=== PATIENT | male | born 1955 | race African-American/Black ===

== ENCOUNTER 2016-10-08 08:47 | Emergency (ER) | payer OTHER ==
[~2016-10-08] VITALS: Ht 170.2 cm; Wt 71.0 kg
[~2016-10-08 08:47] MED LIST: AMLO10 PO; CLON0.1T PO; ELVI1TAB3 PO; FLUT50SP EACH NARE; LISI20TA3 PO; OMEP40CA2 PO; flonase
[2016-10-08 08:48] VITALS: BP 140/80; PULSE 84; RESP 20; TEMP 97.9; O2SAT 100
--- NOTE | 2016-10-08 09:18 | PD ---
HPI Chief Complaint: General Weakness Time Seen by Provider: 09:18 Travel History International Travel<30 days: No Contact w/Intl Traveler<30days: No Traveled to known affect area: No History of Present Illness HPI Our patient is a 61 y.o. male with a history of HIV, HTN, and GERD presenting with a 1 month history of cough, congestion and myalgias. He has associated nausea, abdominal discomfort, fever, dysuria and burning when he urinates. He also had vomiting episode x1 this am. Emesis was small volume, yellow in color, and without visible blood. He denies chest pain, dyspnea and edema. His symptoms have been occurring off and on during this time frame, and he came in today with no increase in the severity of his symptoms. He stated he was tired of feeling not like his usual self and came to the ER because he doesn 't have a PCP. He has taken Tylenol occasionally for the pain to no relief. He does not note any exacerbating or alleviating factors. He denies having pain aside from myalgias. Patient says he has had similar symptoms before but is unsure of when he felt like this last. He cannot recall having any sick contacts and denies recent travel. He smokes marijuana daily, but denies smoking , alcohol consumption and being sexually active. He was treated for a UTI in August 2015 treated successfully with antibiotics. He is a former IVDA, however he has not used for over 6 years. FMHx is significant for HTN, AL and DM in his mother, AL in his sister, and prostate cancer dx at age 60 in his father. He has no significant surgical history, no allergies. He is being treated for HIV infection at the [facility]. His last CD4 count was 1121 as of 08/23. [facility] Past Medical History Narrative Medical HIV +, HTN, GERD Depression: Yes Heart Rhythm Problems: No Cardiac Catheterization: No Cardiomyopathy: Yes (AND MURMUR) Cardiovascular Problems: Yes (HTN) High Cholesterol: Yes Congestive Heart Failure: No Diabetes: No Diminished Hearing: No GERD: Yes Hepatitis: Yes (c) Hypertension: Yes Reproductive: No Immunizations Current: No Myocardial Infarction: No Past Surgical History Coronary Artery Bypass Graft: No Social History Alcohol Use: No Tobacco Use: Yes (QUIT ) Substance Use: Yes (QUIT) Allergies-Medications (Allergen,Severity, Reaction): Coded Allergies: No Known Allergies (Unverified , 10/08/16) Comments No known drug allergies Reported Meds & Prescriptions Reported Meds & Active Scripts Active Norvasc (Amlodipine Besylate) 10 Mg Tab 10 Mg PO DAILY Lisinopril-Hctz 20-25 Mg Tab 1 Tab PO DAILY Omeprazole 40 Mg Cap 40 Mg PO DAILY Reported Klor-Con 10 (Potassium Chloride) 10 Meq Tab 10 Meq PO DAILY Vitamin D2 (Ergocalciferol) 2,000 Unit Tab 50,000 Units PO WEEKLY Genvoya (Kkazigmutmds-Ghjscrcpxo-Gjnulrqgljmy-Tenofvir) 761-726-325-10 Mg Tab 1 Tab PO DAILY Clonidine (Clonidine HCl) 0.1 Mg Tab 0.1 Mg PO BID Narrative Medication List of his home meds reviewed from the nursing notes Review of Systems Except as stated in HPI: all other systems reviewed are Neg General / Constitutional: Positive: Fever, Chills, Other (diaphoresis, chills) HENT: Positive: Congestion Respiratory: Positive: Cough Gastrointestinal: Positive: Abdominal Pain Genitourinary: Positive: Urgency, Frequency, Dysuria Musculoskeletal: Positive: Myalgias, Weakness Physical Exam Narrative GENERAL: Alert and cooperative, in no acute distress. Talks softly. SKIN: Focused skin assessment warm/dry. HEAD: Atraumatic. Normocephalic. EYES: Pupils equal and round. No scleral icterus. Mildly injected bilaterally. ENT: No nasal bleeding or discharge. Mucous membranes dry. NECK: Trachea midline. No JVD. CARDIOVASCULAR: Regular rate and rhythm. 2/6 systolic murmur auscultated at the right upper sternal border. RESPIRATORY: No accessory muscle use. Clear to auscultation. Breath sounds equal bilaterally. No egophony or dullness to percussion. GASTROINTESTINAL: Abdomen soft, non-tender, nondistended. Hepatic and splenic margins not palpable. MUSCULOSKELETAL: No obvious deformities. No clubbing. No cyanosis. No edema. NEUROLOGICAL: Awake and alert. No obvious cranial nerve deficits. Motor grossly within normal limits. Normal speech. PSYCHIATRIC: Appropriate mood and affect; insight and judgment normal. Data Data Last Documented VS Vital Signs Date Time Temp Pulse Resp B/P Pulse Ox O2 Delivery O2 Flow Rate FiO2 10/08/16 10:46 74 16 131/70 98 Room Air 10/08/16 08:48 97.9 Orders Complete Blood Count With Diff (10/08/16 10:00) Comprehensive Metabolic Panel (10/08/16 10:00) Urinalysis - C+S If Indicated (10/08/16 10:00) Chest, Single Ap (10/08/16 ) Labs Laboratory Tests Test 10/08/16 10/08/16 10/08/16 10:10 10:44 10:47 White Blood Count 5.7 TH/MM3 Red Blood Count 4.34 MIL/MM3 Hemoglobin 13.2 GM/DL Hematocrit 37.7 % Mean Corpuscular Volume 86.9 FL Mean Corpuscular Hemoglobin 30.4 PG Mean Corpuscular Hemoglobin 34.9 % Concent Red Cell Distribution Width 13.9 % Platelet Count 286 TH/MM3 Mean Platelet Volume 7.5 FL Neutrophils (%) (Auto) 38.6 % Lymphocytes (%) (Auto) 43.0 % Monocytes (%) (Auto) 10.1 % Eosinophils (%) (Auto) 7.4 % Basophils (%) (Auto) 0.9 % Neutrophils # (Auto) 2.2 TH/MM3 Lymphocytes # (Auto) 2.5 TH/MM3 Monocytes # (Auto) 0.6 TH/MM3 Eosinophils # (Auto) 0.4 TH/MM3 Basophils # (Auto) 0.1 TH/MM3 CBC Comment DIFF FINAL Differential Comment Sodium Level 138 MEQ/L Potassium Level 4.5 MEQ/L Chloride Level 103 MEQ/L Carbon Dioxide Level 27.4 MEQ/L Anion Gap 8 MEQ/L Blood Urea Nitrogen 12 MG/DL Creatinine 1.17 MG/DL Estimat Glomerular Filtration 77 ML/MIN Rate Random Glucose 84 MG/DL Calcium Level 8.4 MG/DL Total Bilirubin 0.5 MG/DL Aspartate Amino Transf 36 U/L (AST/SGOT) Alanine Aminotransferase 38 U/L (ALT/SGPT) Alkaline Phosphatase 95 U/L Total Protein 8.0 GM/DL Albumin 3.3 GM/DL Urine Color YELLOW Urine Turbidity CLEAR Urine pH 6.5 Urine Specific [place] 1.021 Urine Protein TRACE mg/dL Urine Glucose (UA) NEG mg/dL Urine Ketones NEG mg/dL Urine Occult Blood NEG Urine Nitrite NEG Urine Bilirubin NEG Urine Urobilinogen LESS THAN 2.0 MG/DL Urine Leukocyte Esterase NEG Urine RBC 4 /hpf Urine WBC 1 /hpf Urine Mucus MOD /lpf Microscopic Urinalysis Comment CULT NOT INDICATED MDM Medical Decision Making Medical Screen Exam Complete: Yes Emergency Medical Condition: Yes Medical Record Reviewed: Yes Differential Diagnosis URI, pneumonia, AIDS related illness, UTI Narrative Course Patient was examined and reassured that his symptoms were likely due to viral illness. Given his history of HIV infection,patient agreed for CBC, CMP, U/A and CXR to rule out potential AIDS related illness. 11:35 AM all the test results of back and within normal limit. Procedures EKG Prior to Arrival: No Diagnosis Primary Impression: Upper respiratory infection Qualified Code: J06.9 - Upper respiratory tract infection, unspecified type Referrals: Primary Care Physician Additional Instructions: Return to the ER if the condition worsens or any other new concerns. He could take Tylenol/Motrin/ibuprofen/Advil [id number]. Fever or chills. Follow- up with your primary care. Med/Other Pt SpecificInfo: No Change to Meds Disposition: 01 DISCHARGE HOME Condition: Stable Regina Wray MD Oct 08, 2016 09:18
[2016-10-08] MEDS ORDERED: POTA-243 PO (09:30)
[2016-10-08] MEDS ORDERED: ERGO2000 PO (09:30)
[2016-10-08 10:18] LABS: AUTOMATED NEUTROPHIL # 2.2 TH/MM3 (1.8-7.7); BASOPHIL # 0.1 TH/MM3 (0-0.2); BASOPHIL % 0.9 % (0.0-2.0); EOSINOPHIL # 0.4 TH/MM3 (0-0.4); EOSINOPHIL % 7.4 % (0.0-4.0); HEMATOCRIT 37.7 % (39.0-51.0); HEMO FLAGS DIFF FINAL; LYMPHOCYTE # 2.5 TH/MM3 (1.0-4.8); MEAN CELL VOLUME 86.9 FL (80.0-100.0); MEAN CORPUSCULAR HEMOGLOBIN 30.4 PG (27.0-34.0); MEAN CORPUSCULAR HGB CONC 34.9 % (32.0-36.0); MONO % 10.1 % (0.0-8.0); NEUT % 38.6 % (16.0-70.0); PLATELET COUNT 286 TH/MM3 (150-450); RED BLOOD COUNT 4.34 MIL/MM3 (4.50-5.90); RED CELL DISTRIBUTION WIDTH 13.9 % (11.6-17.2); WHITE BLOOD COUNT 5.7 TH/MM3 (4.0-11.0)
--- NOTE | 2016-10-08 10:30 | RADRPT ---
EXAM DATE/TIME: 10/08/2016 10:06 [facility] COMPARISON: No previous studies available for comparison. INDICATIONS : Fever. MEDICAL HISTORY : None. SURGICAL HISTORY : None. ENCOUNTER: Initial ACUITY: 1 day PAIN SCORE: 0/10 LOCATION: Bilateral chest FINDINGS: A single view of the chest demonstrates the lungs to be symmetrically aerated without evidence of mas s, infiltrate or effusion. The cardiomediastinal contours are unremarkable. Osseous structures are intact. CONCLUSION: Normal examination. Alfa Mays Jr., MD on October 08, 2016 at 10:28 Board Certified Radiologist. This report was verified electronically.
[2016-10-08 10:46] VITALS: BP 131/70; PULSE 74; RESP 16; O2SAT 98
[2016-10-08 11:16] LABS: BLOOD, URINE NEG (NEG); COMMENT (UR) CULT NOT INDICATED; CULTURE IF INDICATED CULT NOT INDICATED; GLUCOSE,URINE NEG (NEG); KETONE, URINE NEG (NEG); MUCUS URINE MOD /lpf (OCC); NITRITE,URINE NEG (NEG); PH, URINE 6.5 (5.0-8.5); URINE COLOR YELLOW (YELLW/STRAW)
[2016-10-08 11:16] LABS: ALT (GPT) 38 U/L (12-78)
[2016-10-08 11:18] LABS: ALKALINE PHOSPHATASE 95 U/L (45-117); TOTAL BILIRUBIN ADULT 0.5 MG/DL (0.2-1.0)
[2016-10-08 11:24] LABS: ANION GAP 8 MEQ/L (5-15); AST (GOT) 36 U/L (15-37); BICARBONATE 27.4 MEQ/L (21.0-32.0); BLOOD UREA NITROGEN 12 MG/DL (7-18); CHLORIDE 103 MEQ/L (98-107); GLOMERULAR FILTRATION RATE 77 ML/MIN (>89); SODIUM (NA) 138 MEQ/L (136-145)
[2016-10-08 11:26] LABS: POTASSIUM 4.5 MEQ/L (3.5-5.1)
[2016-10-22] MEDS ORDERED: OMEP40CA2 PO (10:03)
[2016-10-22] MEDS ORDERED: AMLO10 PO (10:03)
[2016-10-22] MEDS ORDERED: LISI20TA3 PO (10:03)
[2016-10-22] MEDS ORDERED: CLON0.1T PO (10:03)
== END 2016-10-08 11:53 | disposition home or self-care (01) ==
LOC: NEPE 08:47
DX: J06.9 Acute upper respiratory infection, unspecified (principal); I10 Essential (primary) hypertension; F12.90 Cannabis use, unspecified, uncomplicated; Z87.891 Personal history of nicotine dependence
CPT/HCPCS: 71010; 80053; 81001; 85025; 99283

== ENCOUNTER 2017-03-06 14:17 | Emergency (ER) | payer MEDICAID, OTHER ==
[~2017-03-06] VITALS: Ht 170.2 cm; Wt 73.5 kg
[~2017-03-06 14:17] MED LIST changes: +ERGO2000 PO; -FLUT50SP EACH NARE; +KLOR10TA PO; -flonase
[2017-03-06 14:18] VITALS: BP 191/99; PULSE 71; RESP 18; TEMP 98; O2SAT 100
--- NOTE | 2017-03-06 16:35 | PD ---
HPI Chief Complaint: Pain: Acute or Chronic Time Seen by Provider: 16:34 Travel History International Travel<30 days: No Contact w/Intl Traveler<30days: No Traveled to known affect area: No History of Present Illness HPI 61-year-old presents emergency department for left shoulder pain that radiates to the left hand that started 3 days ago. Patient states he woke up with this pain 3 days ago and it had worsened. Patient states that the pain starts from the posterior shoulder, radiates to the top of his shoulder, then down to his fingertips. Pain is exacerbated with movement and described as moderate and sharp. Patient denies fever, chills, trauma, chest pain, shortness of breath, abdominal pain, back pain, leg pain. No history of DVT or PE. Pt says he has a history of Hepatitis C and HIV for which he sees his infectious disease doctor regularly. Also has GERD and HTN. Denies any other chronic medical conditions or medication use. PFSH Past Medical History Depression: Yes Heart Rhythm Problems: No Cardiac Catheterization: No Cardiomyopathy: Yes (AND MURMUR) Cardiovascular Problems: Yes (HTN) High Cholesterol: Yes Congestive Heart Failure: No Diabetes: No Diminished Hearing: No GERD: Yes Hepatitis: Yes (c) Hypertension: Yes Immune Disorder: Yes (HIV) Reproductive: No Immunizations Current: No Myocardial Infarction: No Past Surgical History Coronary Artery Bypass Graft: No Social History Alcohol Use: No Tobacco Use: Yes (QUIT ) Substance Use: Yes (QUIT) Allergies-Medications (Allergen,Severity, Reaction): Coded Allergies: No Known Allergies (Unverified , 10/22/16) Reported Meds & Prescriptions Reported Meds & Active Scripts Active Robaxin (Methocarbamol) 500 Mg Tab 500 Mg PO TID 5 Days Norvasc (Amlodipine Besylate) 10 Mg Tab 10 Mg PO DAILY Lisinopril-Hctz 20-25 Mg Tab 1 Tab PO DAILY Omeprazole 40 Mg Cap 40 Mg PO DAILY Clonidine (Clonidine HCl) 0.1 Mg Tab 0.1 Mg PO BID Reported Klor-Con 10 (Potassium Chloride) 10 Meq Tab 10 Meq PO DAILY Vitamin D2 (Ergocalciferol) 2,000 Unit Tab 50,000 Units PO WEEKLY Genvoya (Guprpejazlhx-Cquxwumasa-Vlirsgvjignm-Tenofvir) [id number] Mg Tab 1 Tab PO DAILY Physical Exam Narrative GENERAL: Well-developed well-nourished distress SKIN: Focused skin assessment warm/dry. HEAD: Atraumatic. Normocephalic. EYES: Pupils equal and round. No scleral icterus. No injection or drainage. ENT: No nasal bleeding or discharge. Mucous membranes pink and moist. NECK: Trachea midline. No JVD. CARDIOVASCULAR: Regular rate and rhythm. No murmur appreciated. RESPIRATORY: No accessory muscle use. Clear to auscultation. Breath sounds equal bilaterally. MUSCULOSKELETAL: No obvious deformities. No clubbing. No cyanosis. No edema. Neck: FROM, no TTP to paraspinous muscles or midline. Posterior medial aspect of scapula with TTP of the musculature with obvious muscle spasms, reproducible pain. Left arm: Neurovascular intact, grade 5 out of 5 strength, pulses present, cap refill normal. No edema, erythema. TTP to left posterior shoulder to fingertips. NEUROLOGICAL: Awake and alert. No obvious cranial nerve deficits. Motor grossly within normal limits. Normal speech. Neurovascularly intact. PSYCHIATRIC: Appropriate mood and affect; insight and judgment normal. Data Data Last Documented VS Vital Signs Date Time Temp Pulse Resp B/P (MAP) Pulse Ox O2 Delivery O2 Flow Rate FiO2 03/06/17 14:18 98.0 71 18 191/99 (129) 100 Room Air Orders Orders Spine, Thoracic - Lateral Only (03/06/17 ) Shoulder, Limited(2vws) (03/06/17 ) Orphenadrine Inj (Norflex Inj) (03/06/17 17:00) Spine, Cervical - Ltd (Ap&Lat) (03/06/17 ) Ed Discharge Order (03/06/17 18:07) MDM Medical Decision Making Medical Screen Exam Complete: Yes Emergency Medical Condition: Yes Differential Diagnosis Left shoulder radiculopathy versus muscle spasms versus rotator cuff injury Narrative Course 61-year-old presents emergency department for left shoulder pain that radiates to the left hand that started 3 days ago. Patient states he woke up with this pain 3 days ago and it had worsened. Patient states that the pain starts from the posterior shoulder, radiates to the top of his shoulder, then down to his fingertips. Pain is exacerbated with movement and described as moderate and sharp. Patient denies fever, chills, trauma, chest pain, shortness of breath, abdominal pain, back pain, leg pain. No history of DVT or PE. Pt says he has a history of Hepatitis C and HIV for which he sees his infectious disease doctor regularly. Also has GERD and HTN. Denies any other chronic medical conditions or medication use. Vital Signs stable. Physical exam: obvious muscle spasm along mid-scapula with moderate TTP, reproducing some of pt's pain. TTP to musculature of shoulder and midthoracic paraspinous muscles. FROM of neck without TTP. No arm edema, warmth, or erythema. Imaging studies without acute process. H&P consistent with radiculopathy likely secondary to muscle spasms. Muscle relaxers for muscle involvement. Pt to follow up with PCP and neurology for further treatment and evaluation. Return to ED for worsening s/sx. Diagnosis Primary Impression: Radicular pain in left arm Additional Impression: Muscle spasm Referrals: Primary Care Physician Patient Instructions: General Instructions Additional Instructions: Followup with your primary care physician within 2 days. If your symptoms worsen or persist, return to the ED. Continue to move your shoulder as tolerated. Scripts Methocarbamol (Robaxin) 500 Mg Tab 500 MG PO TID for Muscle Spasm for 5 Days, TAB 0 Refills Prov: Elizabeth Malik DO 03/06/17 Disposition: 01 DISCHARGE HOME Condition: Stable Enedelia Rush Mar 06, 2017 16:35
[2017-03-06] MEDS ORDERED: ORPHENADRINE INJ 60 MG/2 ML AMP IM ONE (17:00)
--- NOTE | 2017-03-06 17:26 | RADRPT ---
EXAM DATE/TIME: 03/06/2017 17:07 [facility] COMPARISON: No previous studies available for comparison. INDICATIONS : Left shoulder pain, denies injury MEDICAL HISTORY : Hepatitis C. SURGICAL HISTORY : None. ENCOUNTER: Initial ACUITY: 2 days PAIN SCORE: 10/10 LOCATION: Left Shoulder FINDINGS: Two view examination of the left shoulder demonstrates no evidence of fracture or dislocation. The g lenohumeral and acromioclavicular joints are maintained. Bony mineralization is normal. CONCLUSION: No acute disease. Niels Cornejo MD on March 06, 2017 at 17:24 Board Certified Radiologist. This report was verified electronically.
--- NOTE | 2017-03-06 17:26 | RADRPT ---
EXAM DATE/TIME: 03/06/2017 17:08 [facility] COMPARISON: No previous studies available for comparison. INDICATIONS : Upper back pain, denies injury MEDICAL HISTORY : Hepatitis C SURGICAL HISTORY : None. ENCOUNTER: Initial ACUITY: 2 days PAIN SCORE: 0/10 LOCATION: Thoracic spine FINDINGS: A single lateral view of the thoracic spine was performed. There is normal alignment of the thoracic vertebral bodies. Vertebral body height is maintained. No evidence of fracture or subluxation. CONCLUSION: No acute disease. Niels Cornejo MD on March 06, 2017 at 17:24 Board Certified Radiologist. This report was verified electronically.
--- NOTE | 2017-03-06 17:55 | RADRPT ---
EXAM DATE/TIME: 03/06/2017 17:37 [facility] COMPARISON: SPINE THORACIC LATERAL ONLY, March 06, 2017, 17:08. INDICATIONS : Posterior neck pain, denies injury MEDICAL HISTORY : Hepatitis C. SURGICAL HISTORY : None. ENCOUNTER: Initial ACUITY: 2 days PAIN SCORE: 2/10 LOCATION: Cervical spine FINDINGS: There are no compression deformities. Alignment is normal. Multilevel osteophytosis and moderate disc space narrowing. Odontoid process is intact. No compression deformity. CONCLUSION: Degenerative changes without fracture or listhesis. Niels Cornejo MD on March 06, 2017 at 17:52 Board Certified Radiologist. This report was verified electronically.
[2017-03-06] MEDS ORDERED: ROBA500T PO (18:06)
== END 2017-03-06 18:28 | disposition home or self-care (01) ==
LOC: NEPD 14:17
DX: M79.602 Pain in left arm (principal); M62.838 Other muscle spasm; K21.9 Gastro-esophageal reflux disease without esophagitis; I10 Essential (primary) hypertension
CPT/HCPCS: 72020; 72040; 73030; 96372; 99284; J2360